=== PATIENT | female | born 1980 | race Caucasian/White ===

== ENCOUNTER 2024-02-16 15:07 | Emergency (ER) | payer BC ==
[2024-02-16 16:05] LABS: BASO % 0.2 % (0.0-1.0); EOS # 0.1 10^3/uL (0.0-0.5); EOS % 0.5 % (0.0-3.0); HEMATOCRIT 35.6 % (36.0-47.0); HEMOGLOBIN 11.4 g/dl (12.0-15.5); LYMPH # 0.5 10^3/uL (1.5-5.0); LYMPH % 4.6 % (24.0-44.0); MEAN CORPUSCULAR HEMOGLOBIN 26.8 pg (27.0-33.0); MEAN CORPUSCULAR VOLUME 83.8 fl (80.0-96.0); MONO # 0.7 10^3/uL (0.0-0.8); MONO % 6.2 % (2.0-8.0); NEUTROPHILS # 9.6 10^3/uL (1.5-8.5); NEUTROPHILS % 88.1 % (36.0-66.0); PLATELET COUNT, AUTOMATED 322 10^3/uL (150-450); RED BLOOD COUNT 4.25 10^6/uL (4.00-5.40); WHITE BLOOD COUNT 10.8 10^3/uL (4.0-10.0)
[2024-02-16 16:27] LABS: LIPASE 21 U/L (12-53)
[2024-02-16 16:29] LABS: ALBUMIN 2.4 G/DL (3.2-5.2); ALKALINE PHOSPHATASE 95 U/L (35-104); ALT/SGPT 17 U/L (7.0-40); AST/SGOT 15 U/L (<34); BILIRUBIN,DIRECT 0.3 MG/DL (<0.4); BILIRUBIN,TOTAL 0.8 MG/DL (0.3-1.2); BLOOD UREA NITROGEN 10 MG/DL (9-23); CALCIUM LEVEL 8.5 MG/DL (8.5-10.1); CARBON DIOXIDE LEVEL 26 MMOL/L (20-31); CHLORIDE LEVEL 102 MMOL/L (98-107); CREATININE FOR GFR 0.61 MG/DL (0.55-1.30); GLOMERULAR FILTRATION RATE > 60.0 (>58); GLUCOSE, FASTING 122 MG/DL (60-100); POTASSIUM SERUM 4.2 MMOL/L (3.5-5.1); SODIUM LEVEL 137 MMOL/L (136-145); TOTAL PROTEIN 6.1 G/DL (5.7-8.2)
[2024-02-16] MEDS: MORPHINE 4 MG/ML 1ML VIAL IV ONE ×3 (16:58→21:53)
[2024-02-16] MEDS: ONDANSETRON 4MG 2ML VIAL IV ONE ×2 (16:58→19:42)
[2024-02-16] MEDS: NS (Normal Saline) 0.9% 1,000 ML IV SCH (17:00)
[2024-02-16] MEDS: GASTROGRAFIN SOLUTION 30ML PO SCH (17:39)
[2024-02-16 17:49] LABS: INR 1.08; PARTIAL THROMBOPLASTIN TIME 39.6 SECONDS (24.8-34.2); PROTHROMBIN TIME 14.3 SECONDS (12.5-14.5)
[2024-02-16] MEDS ORDERED: ISOVUE-370 76% 100ML VIAL As Ordered ONE (18:53)
[2024-02-16] MEDS: PROMETHAZINE 25MG/ML 1ML VIAL IV ONE (21:53)
[2024-02-17] MEDS: MORPHINE 4 MG/ML 1ML VIAL IV ONE (01:13)
[2024-02-17 03:30] VITALS: BP 119/73; TEMP 98.9; O2SAT 95
== END 2024-02-17 04:13 | disposition short-term general hospital (02) ==
LOC: M ED 15:07
DX: K56.609 Unspecified intestinal obstruction, unspecified as to partial versus complete obstruction (principal); Z90.711 Acquired absence of uterus with remaining cervical stump; Z88.0 Allergy status to penicillin; Z88.1 Allergy status to other antibiotic agents; Z88.4 Allergy status to anesthetic agent
CPT/HCPCS: 71045; 74177; 80048; 80076; 83605; 83690; 85025; 85610; 85730; 93041; 96374; 96375; 96376; 99285; J2405; J2550; Q9963; Q9967